=== PATIENT | female | born 1940 | race Caucasian/White ===

== ENCOUNTER 2018-03-30 10:33 | Emergency (ER) | payer MEDICARE, OTHER ==
[~2018-03-30] VITALS: Ht 172.7 cm; Wt 60.5 kg
[2018-03-30] MEDS ORDERED: BIMA12.5OS OU (10:44)
[2018-03-30] MEDS ORDERED: ARIP10TA16 PO (10:44)
[2018-03-30] MEDS ORDERED: SIMV20TA6 PO (10:44)
[2018-03-30] MEDS ORDERED: FURO-152 PO (10:44)
[2018-03-30] MEDS ORDERED: OS500 PO (10:44)
[2018-03-30] MEDS ORDERED: AMIO200T5 PO (10:44)
[2018-03-30] MEDS ORDERED: RIVA1TAB PO (10:44)
[2018-03-30] MEDS ORDERED: LISI40TA4 PO (10:44)
[2018-03-30 16:37] VITALS: BP 116/84
== END 2018-03-30 16:47 | disposition home or self-care (01) ==
LOC: EMS 10:35
DX: S70.01XA Contusion of right hip, initial encounter (principal); I48.91 Unspecified atrial fibrillation; F41.9 Anxiety disorder, unspecified; F20.9 Schizophrenia, unspecified; F31.9 Bipolar disorder, unspecified; F17.210 Nicotine dependence, cigarettes, uncomplicated; Z79.899 Other long term (current) drug therapy; X58.XXXA Exposure to other specified factors, initial encounter; Y93.89 Activity, other specified; Y92.89 Other specified places as the place of occurrence of the external cause; Y99.8 Other external cause status
CPT/HCPCS: 73502; 99284

== ENCOUNTER 2018-11-05 15:55 | Emergency (ER) | payer MEDICARE, OTHER ==
[~2018-11-05] VITALS: Ht 172.7 cm; Wt 76.8 kg
[~2018-11-05 15:55] MED LIST: AMIO200T5 PO; ARIP10TA16 PO; BIMA12.5OS OU; FURO-152 PO; LISI40TA4 PO; OS500 PO; RIVA1TAB PO; SIMV20TA6 PO
[2018-11-05 16:34] LABS: BASOPHILS % (AUTO) 3.2 % (0.0-2.0); EOSINOPHILS % (AUTO) 1.6 % (1.0-6.0); HEMATOCRIT 48.7 % (36-46); HEMOGLOBIN 15.7 g/dL (12.0-16.0); LYMPHOCYTES # (AUTO) 1.1 K/uL (1.0-4.8); LYMPHOCYTES % (AUTO) 6.8 % (22.0-44.0); MEAN CORPUSCULAR HEMOGLOBIN 25.4 pg (26.0-34.0); MEAN CORPUSCULAR HGB CONC 32.2 G/dL (31.0-37.0); MEAN CORPUSCULAR VOLUME 79 fL (80-100); MONOCYTES # (AUTO) 0.5 K/uL (0.1-1.0); MONOCYTES % (AUTO) 3.4 % (2.0-9.0); NEUTROPHILS # (AUTO) 13.1 K/uL (1.8-7.7); RED BLOOD CELL COUNT(AUTO) 6.17 MIL/uL (4.00-5.20); RED CELL DISTRIBUTION WIDTH 18.8 % (11.5-14.5)
[2018-11-05 16:43] LABS: ANION GAP 5 mmol/L (8-16); CALCIUM, TOTAL 9.2 mg/dL (8.8-10.5); CARBON DIOXIDE 31 mmol/L (22-29); CHLORIDE 108 mmol/L (98-107); CREATININE 0.89 mg/dL (0.60-1.30); GLUCOSE,RANDOM 120 mg/dL (70-110); POTASSIUM 3.5 mmol/L (3.5-5.1); SODIUM SERUM 144 mmol/L (136-145); UREA NITROGEN, BLOOD 17 mg/dL (7-18)
[2018-11-05 16:45] LABS: GLOMERULAR FILTR. RATE CALC > 60 mL/min (>60)
[2018-11-05 16:47] LABS: PLATELET COUNT (AUTO) 1433 K/uL (150-450)
[2018-11-05 16:50] LABS: INR 1.4 (0.9-1.1)
[2018-11-05 19:59] VITALS: BP 179/98
[2018-11-05 20:13] LABS: PLATELET MORPHOLOGY COMMENT LARGE PLTS PRESENT
== END 2018-11-05 20:27 | disposition home or self-care (01) ==
LOC: EMS 15:57
DX: R04.0 Epistaxis (principal); D47.3 Essential (hemorrhagic) thrombocythemia; D68.9 Coagulation defect, unspecified
CPT/HCPCS: 30901; 93005